=== PATIENT | male | born 1945 | race Caucasian/White ===

== ENCOUNTER 2016-12-26 11:33 | Emergency (ER) | payer MEDICARE ==
[~2016-12-26] VITALS: Ht 170.2 cm; Wt 83.9 kg
[~2016-12-26 11:33] MED LIST: CIPR-225 PO; OMEP40CA36 PO; OXYC-197 PO; PANT40TA3 PO
--- NOTE | 2016-12-26 11:48 | ED Cough/URI ---
General Chief Complaint: Respiratory Problems Stated Complaint: COUGH/CONGESTION WEAKNESS Source: patient Exam Limitations: no limitations History of Present Illness Time seen by provider: 11:46 Initial Comments To ER with a four-day history of chills, general malaise, sore throat and persistent nonproductive cough. He also reports pain in his hips and thighs. Timing/Duration: constant Severity/Quality: dry cough Prior Episodes/Possible Cause: no prior episodes Associated Symptoms: cough Allergies and Home Medications Allergies Coded Allergies: No Known Drug Allergies (Unverified , 05/28/12) Home Medications Aspirin 81 Mg Tablet.dr, 81 MG PO DAILY, (Reported) Constitutional: see HPI, chills, No fever, malaise, weakness EENTM: see HPI, throat pain, No nose congestion, No nose pain Respiratory: see HPI, cough Cardiovascular: no symptoms reported Genitourinary: no symptoms reported Musculoskeletal: see HPI, other (Pain in hips and thighs) Skin: no symptoms reported Psychiatric/Neurological: No Symptoms Reported Hematologic/Lymphatic: No Symptoms Reported Immunological/Allergic: no symptoms reported Past Pswrejc-Uiardb-Nosryw Hx Patient Social History Recent Foreign Travel: No Contact w/Someone Who Travel: No Surgeries HX Surgeries: Yes (ERCP) Respiratory Hx Respiratory Disorders: No Cardiovascular Hx Cardiac Disorders: No Neurological Hx Neurological Disorders: No Reproductive System Sexually Transmitted Disease: No HIV/AIDS: No Genitourinary Hx Genitourinary Disorders: No Gastrointestinal Hx Gastrointestinal Disorders: Yes Gastrointestinal Disorders: Gall Bladder Disease Musculoskeletal Hx Musculoskeletal Disorders: No Endocrine Hx Endocrine Disorders: No HEENT HX ENT Disorders: Yes (GLASSES, PARTIAL DENTURES) Loss of Vision: Bilateral Hearing Impairment: Denies Cancer Hx Cancer: No Psychosocial Hx Psychiatric Problems: No Integumentary HX Skin/Integumentary Disorder: Yes (MILD) Skin/Integumentary Disorders: Psoriasis Blood Transfusions Hx Blood Disorders: No Adverse Reaction to a Blood Tr: No Physical Exam Vital Signs Vital Sign - Last 12Hours 12/26/16 11:42 Temp 98.2 Pulse 69 Resp 20 B/P (MAP) 158/83 Pulse Ox 95 O2 Delivery Room Air Capillary Refill : General Appearance: WD/WN, no apparent distress Eyes: Bilateral Eye EOMI, Bilateral Eye Normal Inspection, Bilateral Eye PERRL HEENT: PERRL/EOMI, normal ENT inspection Neck: non-tender, full range of motion Respiratory: chest non-tender, lungs clear, normal breath sounds, no respiratory distress, no accessory muscle use Cardiovascular: regular rate, rhythm, no murmur Gastrointestinal: normal bowel sounds, non tender, soft Neurologic/Psychiatric: alert, normal mood/affect, oriented x 3 Skin: normal color, warm/dry Progress/Results/Core Measures Results/Orders Lab Results Laboratory Tests Test 12/26/16 12:13 Range/Units White Blood Count 4.9 4.3-11.0 10^3/uL Red Blood Count 5.69 4.35-5.85 10^6/uL Hemoglobin 15.3 13.3-17.7 G/DL Hematocrit 46 40-54 % Mean Corpuscular Volume 80 80-99 FL Mean Corpuscular Hemoglobin 27 25-34 PG Mean Corpuscular Hemoglobin Concent 34 32-36 G/DL Red Cell Distribution Width 13.9 10.0-14.5 % Platelet Count 147 130-400 10^3/uL Mean Platelet Volume 10.8 H 7.4-10.4 FL Neutrophils (%) (Auto) 69 42-75 % Lymphocytes (%) (Auto) 16 12-44 % Monocytes (%) (Auto) 12 0-12 % Eosinophils (%) (Auto) 2 0-10 % Basophils (%) (Auto) 1 0-10 % Neutrophils # (Auto) 3.4 1.8-7.8 X 10^3 Lymphocytes # (Auto) 0.8 L 1.0-4.0 X 10^3 Monocytes # (Auto) 0.6 0.0-1.0 X 10^3 Eosinophils # (Auto) 0.1 0.0-0.3 10^3/uL Basophils # (Auto) 0.0 0.0-0.1 10^3/uL Micro Results Microbiology 12/26/16 Influenza Types A,B Antigen (AKASH) - Final, Complete My Orders Orders - HALLE ADKINS APRN Saline Lock/Iv-Start (12/26/16 11:45) Cbc With Automated Diff (12/26/16 11:45) Comprehensive Metabolic Panel (12/26/16 11:45) Chest Pa/Lat (2 View) (12/26/16 11:45) Influenza A And B Antigens (12/26/16 11:45) Vital Signs/I&O Vital Sign - Last 12Hours 12/26/16 11:42 Temp 98.2 Pulse 69 Resp 20 B/P (MAP) 158/83 Pulse Ox 95 O2 Delivery Room Air Diagnostic Imaging Diagonstic Imaging: Xray Plain Films/CT/US/NM/MRI: chest Comments NAME: EDUADR [facility] REC#: [id number] PT STATUS: REG ER : 1945 PHYSICIAN: HALLE ADKINS APRN ADMIT DATE: 12/26/16/ER Draft Date of Exam:12/26/16 CHEST PA/LAT (2 VIEW) PA and lateral views of the chest. INDICATION: Cough and congestion. FINDINGS: There is a tiny amount of fluid along the minor fissure. There is no focal consolidation. The heart size is normal. No effusion or pneumothorax. The mediastinum and clover appear unremarkable. IMPRESSION: Minimal fluid in the minor fissure seen. No significant consolidation. Dictated on workstation # [id number] Dict: 12/26/16 1230 Trans: 12/26/16 1233 [id number] Interpreted by: LAM RAMOS MD Electronically signed by: Departure Impression Impression: Primary Impression: Bronchitis Disposition: 01 HOME, SELF-CARE Departure-Patient Inst. Decision time for Depature: 12:46 Referrals: AROLDO ADAIR MD (PCP/Family) Primary Care Physician Patient Instructions: Chronic Bronchitis (DC) Add. Discharge Instructions: 1. Antibiotics cough medication and steroids as directed 2. Return to ER for any worsening symptoms 3. See your doctor for recheck next week All discharge instructions reviewed with patient and/or family. Voiced understanding. Scripts Acetaminophen with Codeine (Acetaminophen-Cod #3 Tablet) 1 Each Tablet 1 EACH PO Q6H Y for COUGH, #14 TAB Prov: HALLE ADKINS APRN 12/26/16 Amoxicillin/Potassium Clav (Augmentin 875-125 Tablet) 1 Each Tablet 1 EACH PO BID, #14 TAB Prov: HALLE ADKINS APRN 12/26/16 Prednisone (Prednisone) 20 Mg Tab 40 MG PO DAILY, #6 TAB Prov: HALLE ADKINS APRN 12/26/16 HALLE ADKINS APRN Dec 26, 2016 11:48
[2016-12-26] MEDS ORDERED: ASPI-586 PO (11:57)
[2016-12-26 12:22] LABS: BASOPHILS % (AUTO) 1 % (0-10); EOSINOPHILS # (AUTO) 0.1 10^3/uL (0.0-0.3); EOSINOPHILS % (AUTO) 2 % (0-10); LYMPHOCYTES # (AUTO) 0.8 X 10^3 (1.0-4.0); LYMPHOCYTES % (AUTO) 16 % (12-44); MEAN CORPUSCULAR HEMOGLOBIN 27 PG (25-34); MEAN CORPUSCULAR HGB CONC 34 G/DL (32-36); MEAN CORPUSCULAR VOLUME 80 FL (80-99); MEAN PLATELET VOLUME 10.8 FL (7.4-10.4); MONOCYTES # (AUTO) 0.6 X 10^3 (0.0-1.0); MONOCYTES % (AUTO) 12 % (0-12); NEUTROPHILS # (AUTO) 3.4 X 10^3 (1.8-7.8); NEUTROPHILS % (AUTO) 69 % (42-75); PLATELET COUNT 147 10^3/uL (130-400); RED BLOOD COUNT 5.69 10^6/uL (4.35-5.85); RED CELL DISTRIBUTION WIDTH 13.9 % (10.0-14.5); WHITE BLOOD COUNT 4.9 10^3/uL (4.3-11.0)
--- NOTE | 2016-12-26 12:34 | Diagnostic Imaging Report ---
PA and lateral views of the chest. INDICATION: Cough and congestion. FINDINGS: There is a tiny amount of fluid along the minor fissure. There is no focal consolidation. The heart size is normal. No effusion or pneumothorax. The mediastinum and clover appear unremarkable. IMPRESSION: Minimal fluid in the minor fissure seen. No significant consolidation. Dictated by: Dictated on workstation # [id number]
[2016-12-26 12:47] LABS: ALANINE AMINOTRANSFERASE 24 U/L (0-55); ALBUMIN 3.6 G/DL (3.2-4.5); ANION GAP 11 MMOL/L (5-14); ASPARTATE AMINO TRANSFERASE 20 U/L (5-34); BILIRUBIN,TOTAL 0.3 MG/DL (0.1-1.0); BLOOD UREA NITROGEN 14 MG/DL (7-18); BUN/CREATININE RATIO 13; CALCIUM 8.5 MG/DL (8.5-10.1); CARBON DIOXIDE 23 MMOL/L (21-32); CHLORIDE 104 MMOL/L (98-107); CREATININE SERUM 1.09 MG/DL (0.60-1.30); GFR ESTIMATED > 60; GLUCOSE 127 MG/DL (70-105); POTASSIUM 4.4 MMOL/L (3.6-5.0); SODIUM 138 MMOL/L (135-145); TOTAL PROTEIN 6.4 G/DL (6.4-8.2)
[2016-12-26] MEDS ORDERED: PRD20T PO (12:47)
[2016-12-26] MEDS ORDERED: ACET1TAB43 PO (12:47)
[2016-12-26] MEDS ORDERED: AMOX-358 PO (12:47)
[2016-12-26 13:02] VITALS: BP 149/90
--- OUTSIDE RECORDS SUMMARY | 2016-12-28 12:31 | XMS REPORT | Continuity of Care Document ---
Author Author [facility] Organization [facility] Address Unknown Phone Unavailable Allergies Active Description Code Type Severity Reaction Onset Reported/Identified Relationship to Patient Clinical Status Yes No Known Drug Allergies [id number] Drug Allergy Unknown N/ A 05/28/2012 Medications Problems Date Dx Coded Attending Type Code Diagnosis Diagnosed By 05/29/2012 Ot 574.20 05/29/2012 Ot 753.10 05/29/2012 Ot 791.9 05/29/2012 Ot 879.2 05/29/2012 Ot E000.8 05/29/2012 Ot E849.0 05/29/2012 Ot E917.9 05/29/2012 Ot V06.1 04/13/2015 HANNAH ARAYA, SERENA Dey Ot 727.61 05/16/2015 LAZARO ARAYA, PORSHA [place] Ot 574.41 05/16/2015 LAZARO ARAYA, PORSHA [place] Ot 998.11 05/16/2015 LAZARO ARAYA, PORSHA [place] Ot V45.89 05/16/2015 LAZARO ARAYA, PORSHA [place] Ot V64.41 06/12/2015 URIEL MCDERMOTT TRADING MANAGER Ot 574.20 06/12/2015 URIEL MCDERMOTT TRADING MANAGER Ot 789.06 09/13/2015 HANNAH ARAYA, SERENA Dey Ot 727.61 09/13/2015 URIEL MCDERMOTT TRADING MANAGER Ot 574.20 09/13/2015 URIEL MCDERMOTT APRN Ot 789.06 09/13/2015 LAZARO ARAYA, PORSHA [place] Ot 574.20 09/13/2015 LAZARO ARAYA, PORSHA [place] Ot V72.84 09/17/2015 LAZARO ARAYA, PORSHA [place] Ot R10.10 10/04/2015 LAZARO ARAYA, PORSHA [place] Ot R10.10 10/09/2015 LAZARO ARAYA, PORSHA [place] Ot R10.11 Procedures Results Test Result Range Complete blood count (CBC) with automated white blood cell (WBC) differential - 12/26/16 12:13 Blood leukocytes automated count (number/volume) 4.9 10*3/ uL 4.3-11.0 Blood erythrocytes automated count (number/volume) 5.69 10*6 /uL 4.35-5.85 Venous blood hemoglobin measurement (mass/volume) 15.3 g/dL 13.3-17.7 Blood hematocrit (volume fraction) 46 % 40-54 Automated erythrocyte mean corpuscular volume 80 [foz_us] 80-99 Automated erythrocyte mean corpuscular hemoglobin (mass per erythrocyte) 27 pg 25-34 Automated erythrocyte mean corpuscular hemoglobin concentration measurement ( mass/volume) 34 g/dL 32-36 Automated erythrocyte distribution width ratio 13.9 % 10.0-14.5 Automated blood platelet count (count/volume) 147 10*3/uL 130-400 Automated blood platelet mean volume measurement 10.8 [foz_ us] 7.4-10.4 Automated blood neutrophils/100 leukocytes 69 % 42-75 Automated blood lymphocytes/100 leukocytes 16 % 12-44 Blood monocytes/100 leukocytes 12 % 0-12 Automated blood eosinophils/100 leukocytes 2 % 0-10 Automated blood basophils/100 leukocytes 1 % 0-10 Blood neutrophils automated count (number/volume) 3.4 10*3 1.8-7.8 Blood lymphocytes automated count (number/volume) 0.8 10*3 1.0-4.0 Blood monocytes automated count (number/volume) 0.6 10*3 0.0-1.0 Automated eosinophil count 0.1 10*3/uL 0.0-0.3 Automated blood basophil count (count/volume) 0.0 10*3/uL 0.0-0.1 Influenza virus A and B antigen detection - 12/26/16 12:13 FLU RESULT NEGATIVE FOR INFLUENZA A AND B ANTIGENS BY [facility] Comprehensive metabolic panel - 12/26/16 12:13 Serum or plasma sodium measurement (moles/volume) 138 mmol/ L 135-145 Serum or plasma potassium measurement (moles/volume) 4.4 mmol/L 3.6-5.0 Serum or plasma chloride measurement (moles/volume) 104 mmol /L 98-107 Carbon dioxide 23 mmol/L 21-32 Serum or plasma anion gap determination (moles/volume) 11 mmol/L 5-14 Serum or plasma urea nitrogen measurement (mass/volume) 14 mg/dL 7-18 Serum or plasma creatinine measurement (mass/volume) 1.09 mg /dL 0.60-1.30 Serum or plasma urea nitrogen/creatinine mass ratio 13 NRG Serum or plasma creatinine measurement with calculation of estimated glomerular filtration rate > NRG Serum or plasma glucose measurement (mass/volume) 127 mg/dL 70-105 Serum or plasma calcium measurement (mass/volume) 8.5 mg/dL 8.5-10.1 Serum or plasma total bilirubin measurement (mass/volume) 0.3 mg/dL 0.1-1.0 Serum or plasma alkaline phosphatase measurement (enzymatic activity/volume) 93 U/L 40-136 Serum or plasma aspartate aminotransferase measurement (enzymatic activity/ volume) 20 U/L 5-34 Serum or plasma alanine aminotransferase measurement (enzymatic activity/volume ) 24 U/L 0-55 Serum or plasma protein measurement (mass/volume) 6.4 g/dL 6.4-8.2 Serum or plasma albumin measurement (mass/volume) 3.6 g/dL 3.2-4.5 Encounters ACCT No. Visit Date/Time Discharge Status Pt. Type Provider Facility Loc./Unit Complaint [id number] 05/14/2015 06:31:00 2014 12:50:00 DIS Inpatient PORSHA WILLIS MD [facility] SURGICAL [id number] 05/11/2015 06:43:00 2014 23:59:59 CLS Outpatient PORSHA WILLIS MD [facility] PREOP [id number] 05/10/2015 08:56:00 2014 23:59:59 CLS Outpatient URIEL MCDERMOTT APRN [facility] RAD [id number] 03/22/2015 10:26:00 2014 23:59:59 CLS Outpatient SERENA YOUNG MD [facility] RAD [id number] 12/26/2016 12:31:00 Document Registration [id number] 09/14/2015 15:50:00 ACT Outpatient PORSHA WILLIS MD [facility] RAD [id number] 09/13/2015 14:40:00 ACT Outpatient PORSHA WILLIS MD [facility] LAB [id number] 05/28/2012 22:16:00 Document Registration
== END 2016-12-26 13:01 | disposition home or self-care (01) ==
LOC: EDUNIT# 11:33 → ER 11:35
DX: J40 Bronchitis, not specified as acute or chronic (principal); R53.1 Weakness
CPT/HCPCS: 36415; 71020; 80053; 85025; 87804